=== PATIENT | female | born 1980 | race Caucasian/White ===

== ENCOUNTER 2016-09-29 02:24 | Emergency (ER) | payer MEDICAID, OTHER ==
[2016-09-29 02:58] VITALS: BP 122/77
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
[2016-09-29] MEDS ORDERED: Ketorolac 60 MG/2 ML SDV IM ONE (03:38)
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
== END 2016-09-29 03:57 | disposition home or self-care (01) ==
LOC: JP.ED 02:24
DX: S46.811A Strain of other muscles, fascia and tendons at shoulder and upper arm level, right arm, initial encounter (principal); S43.491A Other sprain of right shoulder joint, initial encounter; J45.909 Unspecified asthma, uncomplicated; K21.9 Gastro-esophageal reflux disease without esophagitis; F17.210 Nicotine dependence, cigarettes, uncomplicated; Z85.41 Personal history of malignant neoplasm of cervix uteri; Z98.890 Other specified postprocedural states; Z79.899 Other long term (current) drug therapy; V89.2XXA Person injured in unspecified motor-vehicle accident, traffic, initial encounter
CPT/HCPCS: 73030; 96372; 99284; J1885

== ENCOUNTER 2017-05-07 19:34 | Emergency (ER) | payer MEDICAID ==
[2017-05-07 20:08] VITALS: BP 148/93
[2017-05-07] MEDS ORDERED: Albuterol 0.083% 2.5 MG/3 ML Neb Soln NEB ONE (20:38)
--- NOTE | 2017-05-07 20:43 | EDM.PDOC ---
ED HPI GENERAL MEDICAL PROBLEM - General Chief Complaint: Respiratory Problem Stated Complaint: COUGH / SOB WITH COLD Time Seen by Provider: 05/07/17 20:25 Source of Information: Reports: Patient, Old Records, RN History Limitations: Reports: No Limitations - History of Present Illness INITIAL COMMENTS - FREE TEXT/NARRATIVE: 36 yo female presents with a persistent cough. Sometimes the cough is productive. No fever. Has a remote hx of asthma, but does not have albuterol. Has no doctor currently. Smokes and has a wood stove at home. Her cough is worse in the morning and then gets better later in the day the longer she is away from the wood smoke in her home. Sx's for over a month. 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 below) (None) body aches Pain Score (Numeric/FACES): 5 - Related Data Allergies Allergy/AdvReac Type Severity Reaction Status Date / Time No Known Allergies Allergy Verified 05/07/17 20:09 Home Meds: Home Meds Fluticasone Propionate [Flovent HFA 110 MCG] 2 puff INH BID #1 puff 05/07/17 [Rx ] Past Medical History - Past Health History Medical/Surgical History: Denies Medical/Surgical History HEENT History: Reports: Impaired Vision Respiratory History: Reports: Asthma Gastrointestinal History: Reports: GERD, Other (See Below) Other Gastrointestinal History: umbilical hernia 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: Psychiatric History: Reports: ADD Oncologic (Cancer) History: Reports: Cervix, Uterine Dermatologic History: Reports: Cellulitis, Eczema, Other (See Below) Other Dermatologic History: recurrent boils - Infectious Disease History Infectious Disease History: Reports: Chicken Pox - Past Surgical History Female Surgical History: Reports: Other (See Below) Other Female Surgeries/Procedures: cervical biopsy Other Oncologic Surgeries/Procedures: uterine; deep bx Social & Family History - Tobacco Use Smoking Status *Q: Current Every Day Smoker Years of Tobacco use: 20 Packs/Tins Daily: 0.2 Used Tobacco, but Quit: No Second Hand Smoke Exposure: No - Caffeine Use Caffeine Use: Reports: Coffee, Energy Drinks - Alcohol Use Days Per Week of Alcohol Use: 0 - Recreational Drug Use Recreational Drug Use: No ED ROS GENERAL - Review of Systems Review Of Systems: See Below Constitutional: Reports: No Symptoms HEENT: Reports: Rhinitis, Other (congestion) Respiratory: Reports: Wheezing, Cough. Denies: Shortness of Breath Cardiovascular: Reports: No Symptoms Skin: Reports: No Symptoms ED EXAM, GENERAL - Physical Exam Exam: See Below Exam Limited By: No Limitations General Appearance: Alert, WD/WN, No Apparent Distress Eye Exam: Bilateral Eye: Normal Inspection, PERRL Ears: Normal External Exam, Normal Canal, Hearing Grossly Normal Ear Exam: Bilateral Ear: Auricle Normal, Canal Normal, TM normal Nose: No Blood Throat/Mouth: Normal Inspection, Normal Lips, Normal Oropharynx, Normal Voice, No Airway Compromise Head: Atraumatic, Normocephalic Neck: Normal Inspection, Supple, Non-Tender Respiratory/Chest: No Respiratory Distress, Lungs Clear, No Accessory Muscle Use , Decreased Breath Sounds Cardiovascular: Regular Rate, Rhythm, No Edema GI/Abdominal: Normal Bowel Sounds, Soft Back Exam: Normal Inspection Extremities: Normal Inspection, Normal Range of Motion, Non-Tender, No Pedal Edema Neurological: Alert, Oriented, CN II-XII Intact, Normal Cognition, Normal Reflexes, No Motor/Sensory Deficits Psychiatric: Normal Affect, Normal Mood Skin Exam: Warm, Dry, Intact, Normal Color, No Rash Lymphatic: No Adenopathy Course - Vital Signs Text/Narrative:: peak flow pre and post albuterol-much better air movement after albuterol Last Recorded V/S: Last Vital Signs Temp 35.7 C 05/07/17 20:05 Pulse 57 L 05/07/17 20:05 Resp 18 05/07/17 20:05 BP 148/93 H 05/07/17 20:05 Pulse Ox 98 05/07/17 20:05 - Orders/Labs/Meds Orders: Active Orders 24 hr Category Date Time Status RT Aerosol Therapy [RC] ASDIRECTED Care 05/07/17 20:38 Active RT Peak Flow Measurement [RC] ASDIRECTED Care 05/07/17 20:45 Active Meds: Medications Discontinued Medications Generic Name Dose Route Start Last Admin Trade Name Freq PRN Reason Stop Dose Admin Albuterol 2.5 mg 05/07/17 20:38 05/07/17 20:42 Proventil Neb Soln NEB 05/07/17 20:39 2.5 mg ONETIME ONE Administration Departure - Departure Time of Disposition: 21:12 Disposition: Home, Self-Care 01 Condition: Fair Clinical Impression: Exacerbation of asthma Qualifiers: Asthma severity: moderate Asthma persistence: persistent Qualified Code(s): J45.41 - Moderate persistent asthma with (acute) exacerbation - Discharge Information Prescriptions: Fluticasone Propionate [Flovent HFA 110 MCG] 2 puff INH BID #1 puff Referrals: PCP,None [Primary Care Provider] - Forms: ED Department Discharge Additional Instructions: Use Albuterol, prednisone, and Flovent as directed on the packaging of your prescription. Avoid smoke anyway your can. Use your peak flow meter to keep track of your asthma. You should be over 500. If you get below 200 you need to come to the ER, otherwise follow up in the clinic sometime in the next 7-10 days , call for an appt. - My Orders Last 24 Hours: My Active Orders 05/07/17 20:38 RT Aerosol Therapy [RC] ASDIRECTED 05/07/17 20:45 RT Peak Flow Measurement [RC] ASDIRECTED - Assessment/Plan Last 24 Hours: My Active Orders 05/07/17 20:38 RT Aerosol Therapy [RC] ASDIRECTED 05/07/17 20:45 RT Peak Flow Measurement [RC] ASDIRECTED
== END 2017-05-07 21:21 | disposition home or self-care (01) ==
LOC: JP.ED 19:34
DX: J45.41 Moderate persistent asthma with (acute) exacerbation (principal); F17.210 Nicotine dependence, cigarettes, uncomplicated
CPT/HCPCS: 94640; 99284-25

== ENCOUNTER 2018-01-15 06:34 | Inpatient (IN) | payer MEDICAID ==
[2018-01-15] MEDS ORDERED: Ondansetron 4 MG/2 ML SDV IV PRN (07:42)
[2018-01-15] MEDS ORDERED: fentaNYL 100 MCG/2 ML SDV IVPUSH PRN (07:42)
[2018-01-15] MEDS ORDERED: Acetaminophen 325 MG Tab PO PRN (07:42)
[2018-01-15] MEDS ORDERED: Sodium Chloride 0.9% 10 ML Syringe FLUSH PRN (07:42)
[2018-01-15] MEDS ORDERED: Lactated Ringers 1,000 ML IV ONE (07:53)
[2018-01-15] MEDS ORDERED: ePHEDrine 50 MG/ML SDV IVPUSH PRN (07:53)
[2018-01-15] MEDS ORDERED: Penicillin G Potassium 5 MILLUNITS in Sodium Chloride 0.9% 50 ML IV ONE (08:30)
--- NOTE | 2018-01-15 08:30 | PCM.LDHP ---
L&D History of Present Illness - General Date of Service: 01/15/18 Admit Problem/Dx: Patient Status Order with Admit Dx/Problem 01/15/18 07:42 Patient Status [ADT] Routine Admission Diagnosis/Problem Admission Diagnosis/Problem Source of Information: Patient History Limitations: Reports: No Limitations - Related Data Allergies/Adverse Reactions: Allergies Allergy/AdvReac Type Severity Reaction Status Date / Time No Known Allergies Allergy Verified 05/07/17 20:09 Home Medications: Home Meds Albuterol [Proventil HFA] 2 puff INH QID PRN 12/07/17 [History] KOP785/Iron Fumarate/FA/DSS [ 19 Tablet] 1 tab PO DAILY 12/07/17 [ History] Past Medical History - Past Health History Medical/Surgical History: Denies Medical/Surgical History HEENT History: Reports: Impaired Vision Respiratory History: Reports: Asthma Gastrointestinal History: Reports: GERD, Other (See Below) Other Gastrointestinal History: umbilical hernia 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: : 7 Para: 3 Other OB/BYN History: GIBRAN-01/14/2018 Psychiatric History: Reports: ADD Oncologic (Cancer) History: Reports: Cervix, Uterine Dermatologic History: Reports: Cellulitis, Eczema, Other (See Below) Other Dermatologic History: recurrent boils - Infectious Disease History Infectious Disease History: Reports: Chicken Pox - Past Surgical History Female Surgical History: Reports: Other (See Below) Other Female Surgeries/Procedures: cervical biopsy Other Oncologic Surgeries/Procedures: uterine; deep bx Social & Family History - Tobacco Use Smoking Status *Q: Current Every Day Smoker Years of Tobacco use: 23 Packs/Tins Daily: 0.5 Used Tobacco, but Quit: No Second Hand Smoke Exposure: Yes - Caffeine Use Caffeine Use: Reports: Coffee, Energy Drinks, Soda, Tea Caffeine Use Comment: 1-2 cups per day - Recreational Drug Use Recreational Drug Use: No H&P Review of Systems - Review of Systems: Review Of Systems: See Below General: Reports: No Symptoms HEENT: Reports: No Symptoms Pulmonary: Reports: No Symptoms Cardiovascular: Reports: No Symptoms Gastrointestinal: Reports: No Symptoms Genitourinary: Reports: No Symptoms Musculoskeletal: Reports: No Symptoms Skin: Reports: No Symptoms Psychiatric: Reports: No Symptoms Neurological: Reports: No Symptoms Hematologic/Lymphatic: Reports: No Symptoms Immunologic: Reports: No Symptoms L&D Exam - Exam Exam: See Below - Vital Signs Vital Signs: Last Vital Signs Temp 36.7 C 01/15/18 06:56 Pulse 91 01/15/18 06:56 Resp 16 01/15/18 06:56 BP 120/67 01/15/18 06:56 Pulse Ox 98 01/15/18 06:56 Weight: 117.934 kg - OB Specific Movement: Active Heart Tones: Present Heart Rate (FHR) Variability: Moderate (6-25 bmp) Presentation: Vertex - Keita Score Keita Score Cervix Position: Midposition Keita Score Consistency: Soft Keita Score Effacement: 51-70% Keita Score Dilation: 3-4 cm Keita Score 's Station: -2 Keita Score Total: 8 - Exam General: Alert, Oriented HEENT: PERRLA, Conjunctiva Clear, EACs Clear, EOMI, Hearing Intact, Mucosa Moist & [place], Nares Patent, Normal Nasal Septum, Posterior Pharynx Clear, TMs Clear Neck: Supple, Trachea Midline Lungs: Clear to Auscultation, Normal Respiratory Effort Cardiovascular: Regular Rate, Regular Rhythm GI/Abdominal Exam: Normal Bowel Sounds, Soft, Non-Tender, No Organomegaly, No Distention, No Abnormal Bruit, No Mass, Pelvis Stable Rectal Exam: Normal Exam, Normal Rectal Tone Genitourinary: Normal external exam, Normal bimanual exam, Normal speculum exam Back Exam: Normal Inspection, Full Range of Motion Extremities: Normal Inspection, Normal Range of Motion, Non-Tender, No Pedal Edema, Normal Capillary Refill Skin: Warm, Dry, Intact Neurological: Cranial Nerves Intact, Reflexes Equal Bilateral DTR: 2+: Patella (L), Patella (R) Psychiatric: Alert, Normal Affect, Normal Mood - Patient Data Lab Results Last 24 hrs: Laboratory Results - last 24 hr 01/15/18 01/15/18 01/15/18 Range/Units 06:55 06:55 06:55 WBC 17.5 H (4.5-11.0) K/uL RBC 4.06 (3.30-5.50) M/uL Hgb 12.0 (12.0-15.0) g/dL Hct 35.7 L (36.0-48.0) % MCV 88 (80-98) fL MCH 30 (27-31) pg MCHC 34 (32-36) % Plt Count 337 (150-400) K/uL Neut % (Auto) 68 H (36-66) % Lymph % (Auto) 18 L (24-44) % [place] % (Auto) 13 H (2-6) % Eos % (Auto) 2 (2-4) % Baso % (Auto) 0 (0-1) % Urine Color Yellow Urine Appearance Cloudy Urine pH 7.0 (4.5-8.0) Ur Specific [place] 1.015 (1.008-1.030) Urine Protein Negative (NEGATIVE) mg/dL Urine Glucose (UA) Normal (NEGATIVE) mg/dL Urine Ketones Negative (NEGATIVE) mg/dL Urine Occult Blood Trace (NEGATIVE) Urine Nitrite Negative (NEGATIVE) Urine Bilirubin Negative (NEGATIVE) Urine Urobilinogen 1 (NORMAL) mg/dL Ur Leukocyte Esterase Large (NEGATIVE) Urine RBC 0-5 (0-5) Urine WBC 10-20 H (0-5) Ur Epithelial Cells Many Amorphous Sediment Moderate Urine Bacteria Many Urine Mucus Moderate Urine Opiates Screen Negative (NEGATIVE) Ur Oxycodone Screen Negative (NEGATIVE) Urine Methadone Screen Negative (NEGATIVE) Ur Propoxyphene Screen Negative (NEGATIVE) Ur Barbiturates Screen Negative (NEGATIVE) Ur Tricyclics Screen Negative (NEGATIVE) Ur Phencyclidine Scrn Negative (NEGATIVE) Ur Amphetamine Screen Negative (NEGATIVE) U Methamphetamines Scrn Negative (NEGATIVE) Urine MDMA Screen Negative (NEGATIVE) U Benzodiazepines Scrn Negative (NEGATIVE) U Cocaine Metab Screen Negative (NEGATIVE) U Marijuana (THC) Screen Negative (NEGATIVE) Result Diagrams: 01/15/18 06:55 - Problem List (1) SNOMED Code(s): 39030890 ICD Code: Z34.90 - ENCNTR FOR SUPRVSN OF NORMAL , UNSP, UNSP TRIMESTER Status: Acute Current Visit: Yes (2) Positive GBS test SNOMED Code(s): 9262653244198, 5602448933662 ICD Code: B95.1 - STREPTOCOCCUS, GROUP B, CAUSING DISEASES CLASSD ELSWHR Status: Acute Current Visit: Yes (3) Encounter for induction of labor SNOMED Code(s): 705193148 ICD Code: Z34.90 - ENCNTR FOR SUPRVSN OF NORMAL , UNSP, UNSP TRIMESTER Status: Acute Current Visit: Yes (4) Advanced maternal age (AMA) in SNOMED Code(s): 708250125 ICD Code: [id number] - Status: Acute Current Visit: Yes Problem List Initiated/Reviewed/Updated: Yes Orders Last 24hrs: Active Orders 24 hr Category Date Time Status Patient Status [ADT] Routine ADT 01/15/18 07:42 Active Antiembolic Devices [RC] .Routine Care 01/15/18 07:49 Active Communication Order [RC] ASDIRECTED Care 01/15/18 07:42 Active Heart Tones [RC] PER UNIT ROUTINE Care 01/15/18 07:42 Active Non Stress Test [RC] Click to Edit Care 01/15/18 07:42 Active Insert Urinary Catheter [OM.PC] ASDIRECTED Care 01/15/18 08:00 Ordered Local Anesthetic Infusion Pump [RC] ASDIRECTED Care 01/15/18 07:53 Active May Shower [RC] ASDIRECTED Care 01/15/18 07:42 Active Notify Provider Vital Signs [RC] PRN Care 01/15/18 07:42 Active Notify Provider [RC] PRN Care 01/15/18 07:42 Active PCEA Epidural [RC] ASDIRECTED Care 01/15/18 07:53 Active PCEA Epidural [RC] ASDIRECTED Care 01/15/18 07:53 Active Up ad Nataliia [RC] ASDIRECTED Care 01/15/18 07:42 Active Up to Chair [RC] QID Care 01/15/18 07:42 Active Urinary Catheter Assessment [RC] ASDIRECTED Care 01/15/18 07:53 Active VTE/DVT Education [RC] Click to Edit Care 01/15/18 07:49 Active Verify Patient Consent Obtain [RC] ASDIRECTED Care 01/15/18 07:53 Active Vital Signs [RC] PER UNIT ROUTINE Care 01/15/18 07:42 Active Regular Diet [DIET] Diet 01/15/18 Breakfast Active OB Follow Up 1st Gest [US] Routine Exams 01/15/18 08:00 Ordered Acetaminophen [Tylenol] Med 01/15/18 07:42 Active 650 mg PO Q4H PRN Lactated Ringers [Ringers, Lactated] 1,000 ml Med 01/15/18 07:53 Active IV ONETIME Ondansetron [Zofran] Med 01/15/18 07:42 Active 4 mg IV Q4H PRN Oxytocin/Normal Saline [Pitocin in NS 20 Units/1,000 ML Med 01/15/18 08:00 Active ] 20 unit in 1,000 ml IV TITRATE Penicillin G Potassium [Pfizerpen] 2.5 millunits Med 01/15/18 12:30 Active Sodium Chloride 0.9% [Normal Saline] 50 ml IV Q4H Penicillin G Potassium [Pfizerpen] 5 millunits Med 01/15/18 08:30 Active Sodium Chloride 0.9% [Normal Saline] 50 ml IV ONETIME Sodium Chloride 0.9% [Saline Flush] Med 01/15/18 07:42 Active 10 ml FLUSH ASDIRECTED PRN ePHEDrine [ePHEDrine Sulfate] Med 01/15/18 07:53 Active 5 mg IVPUSH ONETIME PRN fentaNYL [Sublimaze] Med 01/15/18 07:42 Active 100 mcg IVPUSH Q1H PRN DVT/VTE Prophylaxis Reflex [OM.PC] Routine Oth 01/15/18 07:42 Ordered Epidural Catheter Management [OM.PC] Urgent Oth 01/15/18 07:53 Ordered Saline Lock Insert [OM.PC] Routine Oth 01/15/18 07:42 Ordered Resuscitation Status Routine Resus Stat 01/15/18 07:42 Ordered Medication Orders Acetaminophen (Tylenol) 650 mg PO Q4H PRN PRN Reason: Pain (Mild 1-3) and fever Ephedrine Sulfate (Ephedrine Sulfate) 5 mg IVPUSH ONETIME PRN PRN Reason: * Fentanyl (Sublimaze) 100 mcg IVPUSH Q1H PRN PRN Reason: Pain (moderate 4-6) Penicillin G Potassium 5 (millunits/ Sodium Chloride) 50 mls @ 100 mls/hr IV ONETIME ONE Stop: 01/15/18 08:59 Last Admin: 01/15/18 08:11 Dose: 100 mls/hr Penicillin G Potassium 2.5 (millunits/ Sodium Chloride) 50 mls @ 100 mls/hr IV Q4H MONO Oxytocin/Sodium Chloride (Pitocin In Ns 20 Units/1,000 Ml) 20 unit in 1,000 mls @ 6 mls/hr IV TITRATE MONO; Protocol Lactated Ringer's (Ringers, Lactated) 1,000 mls @ 999 mls/hr IV ONETIME ONE Stop: 01/15/18 08:53 Ondansetron HCl (Zofran) 4 mg IV Q4H PRN PRN Reason: Nausea/Vomiting Sodium Chloride (Saline Flush) 10 ml FLUSH ASDIRECTED PRN PRN Reason: Keep Vein Open Assessment/Plan Comment:: 01/15/2018 37 yo here at 40 1/7 gestational weeks for induction of labor related to postdates, unstable lie of fetus. SVE-3-4/60/-2 bulgy BOW FHTs category one No contractions Plan- Monitor labor Monitor FHTs Start pitocin per protocol May eat regular breakfast GBS positive-PCN GK per protocol May have epidural for pain Plan and anticipate a vaginal delivery
[2018-01-15] MEDS ORDERED: Calcium Carbonate 500 MG Tab.Chew PO PRN (10:04)
--- NOTE | 2018-01-15 11:47 | US ---
OB Ltd 1 or More Fetus CLINICAL HISTORY: position prior to induction FINDINGS: Limited transabdominal scans of the abdomen show single viable intrauterine gestation in ce phalic position IMPRESSION: Limited transabdominal ultrasound shows cephalic presentation
[2018-01-15] MEDS ORDERED: Penicillin G Potassium 2.5 MILLUNITS in Sodium Chloride 0.9% 50 ML IV SCH (12:30)
[2018-01-15] MEDS ORDERED: Lidocaine 1% 50 ML MDV ONE (13:29)
[2018-01-15] MEDS ORDERED: Witch Hazel Medicated Pads 100/Jar TOP PRN (13:39)
[2018-01-15] MEDS ORDERED: Hydrocortisone 2.5% Crm 30 GM Tube TOP PRN (13:39)
[2018-01-15] MEDS ORDERED: Lanolin 100% Cream 40 GM Tube TOP PRN (13:39)
[2018-01-15] MEDS ORDERED: Acetaminophen 325 MG Tab, 50 Tab Bulk Bottle PO PRN (13:44)
[2018-01-15] MEDS ORDERED: Ibuprofen 200 MG Tab, 24 Tab Bulk Bottle PO PRN (13:44)
[2018-01-15] MEDS ORDERED: ePHEDrine 50 MG/ML SDV IV PRN (13:51)
[2018-01-15] MEDS ORDERED: Ropivacaine 100 ML EPIDUR SCH (13:51)
[2018-01-15] MEDS ORDERED: Naloxone 0.4 MG/ML SDV IVPUSH PRN (13:51)
--- NOTE | 2018-01-15 14:04 | ANES ---
DATE OF SERVICE: 01/15/2018 INDICATION: Ms. Izquierdo is a 37-year-old female in active labor, and I was asked by Mariah Aguilar to come and evaluate her for an epidural. The risks and benefits were explained to the patient, and she wished to proceed with the labor epidural. TECHNIQUE: She was placed in a sitting position. Her back was prepped x3 with Betadine. 1% lidocaine skin local was used. The epidural was placed at L3-4 using a 17-gauge Tuohy needle in [id number] technique. The epidural had very good feel throughout, and the epidural space was easily identified. There was negative CSF, negative blood, and negative paresthesias noted. Therefore, a catheter was threaded to 13 cm at the skin. The catheter had negative CSF, negative blood, and negative paresthesias as well. A 3 mL test dose of 1.5% lidocaine with epinephrine was given, and this test dose was negative. The patient was then placed in a supine position after her epidural was secured with Tegaderm and tape. 12 mL of 0.2% ropivacaine bolus was given. This bolus had somewhat good relief; although, I think she was moving quite fast and hard to catch up with this. I did start a 0.2% ropivacaine drip at 12 mL/hour. She tolerated the procedure very nicely. Her vital signs remained stable throughout the procedure, and the nurse was with me for the entire procedure. There were no anesthesia complications noted. We will continue to monitor her throughout her labor and delivery. Thien Mejias CRNA /[id number]
[2018-01-15] MEDS: Benzocaine 20% Top Spray 56 GM Bottle TOP PRN (16:28)
--- NOTE | 2018-01-15 17:41 | PCM.DEL ---
L & D Note - General Info Date of Service: 01/15/18 Mother's Due Date: 01/14/18 - Delivery Note Labor: Spontaneous Cervical Ripening Method: Oxytocin Delivery Outcome: Livebirth Delivery Method: Spontaneous Vaginal Delivery-Single Infant Delivery Mode: Spontaneous Presentation: Right Occiput Posterior (ROP) Nuchal Cord: None Anesthesia Type: None Episiotomy Type: None Laceration: Labial Placenta: Intact, Spontaneous Cord: 3 Vessels Estimated Blood Loss: 300 Resuscitation Needed: No Bieber: Bulb Syringe, Stimulated, Warmed, [place] Used Score 1 min: 9 Score 5 min: 10 Second Stage Interventions: Reports: Pushing Effectively Delivery Comments (Free Text/Narrative):: 01/15/2018 37 yo at 40 1/7 gestational weeks delivered a viable female at 1315 on 01/15/2018 in ROP over an intact perineum. APGARS-9/10, weight-8lbs 2.7oz, Length-19.9 inches, placed on prewarmed blanket on mothers abdomen, cord double clamped after delayed cord clamping and cut by father of infant. then stimulated, dried, and warmed and began to cry vigorously and pink in color. Placenta spontaneous and intact but meconium stained. 3 vessel cord, EBL-300ml, laceration noted of the right labia-patient refused repair. No lacerations noted of cervix, vagina, rectum or perineum. now skin to skin and both mother and baby stable at this time in L&D room. - General Info Date of Service: 01/15/18 Functional Status: Reports: Pain Controlled - Review of Systems General: Reports: No Symptoms HEENT: Reports: No Symptoms Pulmonary: Reports: No Symptoms Cardiovascular: Reports: No Symptoms Gastrointestinal: Reports: No Symptoms Genitourinary: Reports: No Symptoms Musculoskeletal: Reports: No Symptoms Skin: Reports: No Symptoms Neurological: Reports: No Symptoms Psychiatric: Reports: No Symptoms - Patient Data Vitals - Most Recent: Last Vital Signs Temp 37.2 C 01/15/18 14:18 Pulse 52 L 01/15/18 15:40 Resp 18 01/15/18 15:40 BP 104/61 01/15/18 15:40 Pulse Ox 94 L 01/15/18 15:03 Weight - Most Recent: 117.934 kg I&O - Last 24 Hours: Intake & Output 01/15/18 01/15/18 01/15/18 06:59 14:59 22:59 Intake Total 50 Balance 50 Lab Results Last 24 Hours: Laboratory Results - last 24 hr 01/15/18 01/15/18 01/15/18 Range/Units 06:55 06:55 06:55 WBC 17.5 H (4.5-11.0) K/uL RBC 4.06 (3.30-5.50) M/uL Hgb 12.0 (12.0-15.0) g/dL Hct 35.7 L (36.0-48.0) % MCV 88 (80-98) fL MCH 30 (27-31) pg MCHC 34 (32-36) % Plt Count 337 (150-400) K/uL Neut % (Auto) 68 H (36-66) % Lymph % (Auto) 18 L (24-44) % [place] % (Auto) 13 H (2-6) % Eos % (Auto) 2 (2-4) % Baso % (Auto) 0 (0-1) % Urine Color Yellow Urine Appearance Cloudy Urine pH 7.0 (4.5-8.0) Ur Specific [place] 1.015 (1.008-1.030) Urine Protein Negative (NEGATIVE) mg/dL Urine Glucose (UA) Normal (NEGATIVE) mg/dL Urine Ketones Negative (NEGATIVE) mg/dL Urine Occult Blood Trace (NEGATIVE) Urine Nitrite Negative (NEGATIVE) Urine Bilirubin Negative (NEGATIVE) Urine Urobilinogen 1 (NORMAL) mg/dL Ur Leukocyte Esterase Large (NEGATIVE) Urine RBC 0-5 (0-5) Urine WBC 10-20 H (0-5) Ur Epithelial Cells Many Amorphous Sediment Moderate Urine Bacteria Many Urine Mucus Moderate Urine Opiates Screen Negative (NEGATIVE) Ur Oxycodone Screen Negative (NEGATIVE) Urine Methadone Screen Negative (NEGATIVE) Ur Propoxyphene Screen Negative (NEGATIVE) Ur Barbiturates Screen Negative (NEGATIVE) Ur Tricyclics Screen Negative (NEGATIVE) Ur Phencyclidine Scrn Negative (NEGATIVE) Ur Amphetamine Screen Negative (NEGATIVE) U Methamphetamines Scrn Negative (NEGATIVE) Urine MDMA Screen Negative (NEGATIVE) U Benzodiazepines Scrn Negative (NEGATIVE) U Cocaine Metab Screen Negative (NEGATIVE) U Marijuana (THC) Screen Negative (NEGATIVE) Med Orders - Current: Current Medications Acetaminophen (Tylenol) 650 mg PO Q4H PRN PRN Reason: Pain (Mild 1-3) and fever Acetaminophen (Tylenol Bulk Bottle) 325 - 650 mg PO Q4H PRN PRN Reason: Pain Benzocaine (Yons-J-Guolgqc 20% [place]) 0 gm TOP Q4H PRN PRN Reason: Perineal Comfort Measure Last Admin: 01/15/18 16:28 Dose: 1 spray Calcium Carbonate/Glycine (Tums) 1,000 mg PO Q2H PRN PRN Reason: Indigestion Last Admin: 01/15/18 10:19 Dose: 1,000 mg Docusate Sodium (Colace) 100 mg PO BID PRN PRN Reason: Constipation Emollient Ointment (Lansinoh Hpa) 0 gm TOP ASDIRECTED PRN PRN Reason: Sore Nipples Ephedrine Sulfate (Ephedrine Sulfate) 5 mg IVPUSH ONETIME PRN PRN Reason: * Ephedrine Sulfate (Ephedrine Sulfate) 5 - 10 mg IV ASDIRECTED PRN PRN Reason: Systolic BP less than 100 Fentanyl (Sublimaze) 100 mcg IVPUSH Q1H PRN PRN Reason: Pain (moderate 4-6) Last Admin: 01/15/18 12:02 Dose: 100 mcg Hydrocortisone (Proctozone-Hc 2.5% Crm) 0 gm TOP ASDIRECTED PRN PRN Reason: Itching Oxytocin/Sodium Chloride (Pitocin In Ns 20 Units/1,000 Ml) 20 unit in 1,000 mls @ 6 mls/hr IV TITRATE MONO; Protocol Last Titration: 01/15/18 14:32 Dose: Infused Ropivacaine (Naropin 0.2%) 100 mls @ 0 mls/hr EPIDUR ASDIRECTED MONO; Protocol Ibuprofen (Motrin Bulk Bottle) 600 mg PO Q6H PRN PRN Reason: Pain Naloxone HCl (Narcan) 0.1 mg IVPUSH Q5M PRN PRN Reason: IF RESP RATE LESS THAN 6 Ondansetron HCl (Zofran) 4 mg IV Q4H PRN PRN Reason: Nausea/Vomiting Pneumococcal Polyvalent Vaccine (Pneumovax 23) 0.5 ml IM .ONCE ONE Stop: 01/16/18 09:01 Sodium Chloride (Saline Flush) 10 ml FLUSH ASDIRECTED PRN PRN Reason: Keep Vein Open Witch Valery (Tucks) 1 pad TOP ASDIRECTED PRN PRN Reason: Hemorrhoids Last Admin: 01/15/18 16:29 Dose: 1 pad Discontinued Medications Penicillin G Potassium 5 (millunits/ Sodium Chloride) 50 mls @ 100 mls/hr IV ONETIME ONE Stop: 01/15/18 08:59 Last Admin: 01/15/18 08:11 Dose: 100 mls/hr Penicillin G Potassium 2.5 (millunits/ Sodium Chloride) 50 mls @ 100 mls/hr IV Q4H MONO Last Admin: 01/15/18 12:07 Dose: 100 mls/hr Lactated Ringer's (Ringers, Lactated) 1,000 mls @ 999 mls/hr IV ONETIME ONE Stop: 01/15/18 08:53 Last Admin: 01/15/18 11:33 Dose: 999 mls/hr Lidocaine HCl (Xylocaine 1%) Confirm Administered Dose 100 ml .ROUTE .STK-MED ONE Stop: 01/15/18 13:30 - Exam General: Alert, Oriented HEENT: Pupils Equal, Pupils Reactive, EOMI, Mucous Membr. Moist/[place] Neck: Supple Lungs: Clear to Auscultation, Normal Respiratory Effort Cardiovascular: Regular Rate, Regular Rhythm GI/Abdominal Exam: Normal Bowel Sounds, Soft, Non-Tender, No Organomegaly, No Distention, No Abnormal Bruit, No Mass, Pelvis Stable (Female) Exam: Normal External Exam, Normal Speculum Exam, Normal Bimanual Exam, Enlarged Uterus, Vaginal Bleeding Back Exam: Normal Inspection, Full Range of Motion Extremities: Normal Inspection, Normal Range of Motion, Non-Tender, No Pedal Edema, Normal Capillary Refill Skin: Warm, Dry, Intact Neurological: No New Focal Deficit Psy/Mental Status: Alert, Normal Affect, Normal Mood - Problem List & Annotations (1) SNOMED Code(s): 01348030 Code(s): Z34.90 - ENCNTR FOR SUPRVSN OF NORMAL , UNSP, UNSP TRIMESTER Status: Acute Current Visit: Yes Qualifiers: Weeks of gestation: 40 weeks Qualified Code(s): Z3A.40 - 40 weeks gestation of (2) Positive GBS test SNOMED Code(s): 2206240601047, 4978237571790 Code(s): B95.1 - STREPTOCOCCUS, GROUP B, CAUSING DISEASES CLASSD ELSWHR Status: Acute Current Visit: Yes (3) Encounter for induction of labor SNOMED Code(s): 209648604 Code(s): Z34.90 - ENCNTR FOR SUPRVSN OF NORMAL , UNSP, UNSP TRIMESTER Status: Acute Current Visit: Yes (4) Advanced maternal age (AMA) in SNOMED Code(s): 272030511 Code(s): DPE4701 - Status: Acute Current Visit: Yes (5) Normal vaginal delivery SNOMED Code(s): 47179064 Code(s): O80 - ENCOUNTER FOR FULL-TERM UNCOMPLICATED DELIVERY Status: Acute Current Visit: Yes (6) Elevated white blood cell count SNOMED Code(s): 447293853, 554501937 Code(s): D72.829 - ELEVATED WHITE BLOOD CELL COUNT, UNSPECIFIED Status: Acute Current Visit: Yes (7) Meconium staining SNOMED Code(s): 492753104, 653161393 Code(s): P96.83 - MECONIUM STAINING Status: Acute Current Visit: Yes - Problem List Review Problem List Initiated/Reviewed/Updated: Yes - My Orders Last 24 Hours: My Active Orders 01/15/18 07:42 Patient Status [ADT] Routine Communication Order [RC] ASDIRECTED May Shower [RC] ASDIRECTED Notify Provider Vital Signs [RC] PRN Up ad Nataliia [RC] ASDIRECTED Up to Chair [RC] QID Acetaminophen [Tylenol] 650 mg PO Q4H PRN Ondansetron [Zofran] 4 mg IV Q4H PRN Sodium Chloride 0.9% [Saline Flush] 10 ml FLUSH ASDIRECTED PRN fentaNYL [Sublimaze] 100 mcg IVPUSH Q1H PRN DVT/VTE Prophylaxis Reflex [OM.PC] Routine Saline Lock Insert [OM.PC] Routine Resuscitation Status Routine 01/15/18 07:49 Antiembolic Devices [RC] .Routine 01/15/18 07:53 ePHEDrine [ePHEDrine Sulfate] 5 mg IVPUSH ONETIME PRN Epidural Catheter Management [OM.PC] Urgent 01/15/18 08:00 Insert Urinary Catheter [OM.PC] ASDIRECTED Oxytocin/Normal Saline [Pitocin in NS 20 Units/1,000 ML] 20 unit in 1,000 ml IV TITRATE 01/15/18 10:04 Calcium Carbonate [Tums] 1,000 mg PO Q2H PRN 01/15/18 13:39 Benzocaine [Tsdt-G-Gwsjizm 20% [place]] See Dose Instructions TOP Q4H PRN Docusate Sodium [Colace] 100 mg PO BID PRN Hydrocortisone [Proctozone-HC 2.5% Crm] 0 gm TOP ASDIRECTED PRN Lanolin [Lansinoh HPA] 0 gm TOP ASDIRECTED PRN Witch Valery [Tucks] 1 pad TOP ASDIRECTED PRN Assess Lochia [WOMSER] Per Unit Routine Assess Uterine Involution [WOMSER] Per Unit Routine 01/15/18 13:40 Patient Status [ADT] Routine Vital Signs [RC] PFP 01/15/18 13:42 Perineal Care [OM.PC] Per Unit Routine Sitz Bath [OM.PC] Per Unit Routine 01/15/18 13:44 Acetaminophen [Tylenol Bulk Bottle] 325 - 650 mg PO Q4H PRN Ibuprofen [Motrin Bulk Bottle] 600 mg PO Q6H PRN 01/15/18 Breakfast Regular Diet [DIET] 01/16/18 09:00 Pneumococcal Polyvalent-23 Vac [Pneumovax 23] 0.5 ml IM .ONCE ONE - Assessment Assessment:: 01/15/2018 37 yo G7 now P4 in at 40 1/7 gestational weeks delivered viable female without complications at 1315 on 01/15/2018 Labs-GBS positive, A positive, Hep B neg, Hep C neg, HIV neg, RPR nonreactive, Rubella Immune - Plan Plan:: 01/15/2018 37 yo here at 40 1/7 gestational weeks for induction of labor related to postdates, unstable lie of fetus. SVE-3-4/60/-2 bulgy BOW FHTs category one No contractions Plan- Monitor labor Monitor FHTs Start pitocin per protocol May eat regular breakfast GBS positive-PCN GK per protocol May have epidural for pain Plan and anticipate a vaginal delivery 01/15/2018 Routine Cares Support and encourage 48 hr stay for GBS positive CBC in am
[2018-01-15] MEDS: Docusate Sodium 100 MG Cap PO PRN (21:26)
--- NOTE | 2018-01-16 08:08 | PCM.PNPP ---
- General Info Date of Service: 01/16/18 ( day one) Functional Status: Reports: Pain Controlled - Review of Systems General: Reports: No Symptoms HEENT: Reports: No Symptoms Pulmonary: Reports: No Symptoms Cardiovascular: Reports: No Symptoms Gastrointestinal: Reports: No Symptoms Genitourinary: Reports: No Symptoms Musculoskeletal: Reports: No Symptoms Skin: Reports: No Symptoms Neurological: Reports: No Symptoms Psychiatric: Reports: No Symptoms - General Info Date of Service: 01/16/18 - Patient Data Vital Signs - Most Recent: Last Vital Signs Temp 36.1 C 01/16/18 02:58 Pulse 101 H 01/16/18 02:58 Resp 18 01/16/18 02:58 BP 133/69 01/16/18 02:58 Pulse Ox 98 01/16/18 02:58 Weight - Most Recent: 117.934 kg I&O - Last 24 Hours: Intake & Output 01/15/18 01/16/18 01/16/18 22:59 06:59 14:59 Intake Total 360 1800 Balance 360 1800 Med Orders - Current: Current Medications Acetaminophen (Tylenol) 650 mg PO Q4H PRN PRN Reason: Pain (Mild 1-3) and fever Acetaminophen (Tylenol Bulk Bottle) 325 - 650 mg PO Q4H PRN PRN Reason: Pain Last Admin: 01/15/18 18:20 Dose: 650 mg Benzocaine (Ctyy-H-Icohboq 20% Interior) 0 gm TOP Q4H PRN PRN Reason: Perineal Comfort Measure Last Admin: 01/15/18 16:28 Dose: 1 spray Calcium Carbonate/Glycine (Tums) 1,000 mg PO Q2H PRN PRN Reason: Indigestion Last Admin: 01/15/18 10:19 Dose: 1,000 mg Docusate Sodium (Colace) 100 mg PO BID PRN PRN Reason: Constipation Last Admin: 01/15/18 21:26 Dose: 100 mg Emollient Ointment (Lansinoh Hpa) 0 gm TOP ASDIRECTED PRN PRN Reason: Sore Nipples Hydrocortisone (Proctozone-Hc 2.5% Crm) 0 gm TOP ASDIRECTED PRN PRN Reason: Itching Ibuprofen (Motrin Bulk Bottle) 600 mg PO Q6H PRN PRN Reason: Pain Last Admin: 09/20/18 18:20 Dose: 600 mg Ondansetron HCl (Zofran) 4 mg IV Q4H PRN PRN Reason: Nausea/Vomiting Pneumococcal Polyvalent Vaccine (Pneumovax 23) 0.5 ml IM .ONCE ONE Stop: 01/16/18 09:01 Sodium Chloride (Saline Flush) 10 ml FLUSH ASDIRECTED PRN PRN Reason: Keep Vein Open Witch Valery (Tucks) 1 pad TOP ASDIRECTED PRN PRN Reason: Hemorrhoids Last Admin: 01/15/18 16:29 Dose: 1 pad Discontinued Medications Ephedrine Sulfate (Ephedrine Sulfate) 5 mg IVPUSH ONETIME PRN PRN Reason: * Ephedrine Sulfate (Ephedrine Sulfate) 5 - 10 mg IV ASDIRECTED PRN PRN Reason: Systolic BP less than 100 Fentanyl (Sublimaze) 100 mcg IVPUSH Q1H PRN PRN Reason: Pain (moderate 4-6) Last Admin: 01/15/18 12:02 Dose: 100 mcg Penicillin G Potassium 5 (millunits/ Sodium Chloride) 50 mls @ 100 mls/hr IV ONETIME ONE Stop: 01/15/18 08:59 Last Admin: 01/15/18 08:11 Dose: 100 mls/hr Penicillin G Potassium 2.5 (millunits/ Sodium Chloride) 50 mls @ 100 mls/hr IV Q4H MONO Last Admin: 01/15/18 12:07 Dose: 100 mls/hr Oxytocin/Sodium Chloride (Pitocin In Ns 20 Units/1,000 Ml) 20 unit in 1,000 mls @ 6 mls/hr IV TITRATE MONO; Protocol Last Titration: 01/15/18 14:32 Dose: Infused Lactated Ringer's (Ringers, Lactated) 1,000 mls @ 999 mls/hr IV ONETIME ONE Stop: 01/15/18 08:53 Last Admin: 01/15/18 11:33 Dose: 999 mls/hr Ropivacaine (Naropin 0.2%) 100 mls @ 0 mls/hr EPIDUR ASDIRECTED MONO; Protocol Lidocaine HCl (Xylocaine 1%) Confirm Administered Dose 100 ml .ROUTE .STK-MED ONE Stop: 01/15/18 13:30 Last Admin: 01/15/18 18:21 Dose: Not Given Naloxone HCl (Narcan) 0.1 mg IVPUSH Q5M PRN PRN Reason: IF RESP RATE LESS THAN 6 - Infant Interaction Disposition, : [place] in Room with Family Interaction: Holding Feeding: Breastfed ; Nursed Well, Continues to Breastfeed, Encouraged to Breastfeed Support Person: Significant Other - Recovery Exam Fundal Tone: Firm Fundal Level: 2 Fingerbreadths Below Umbilicus Fundal Placement: Left Lochia Amount: Small, Moderate Lochia Color: Rubra/Red Perineum Description: Redness Episiotomy/Laceration: None Urinary Elimination: Voided - Exam General: Alert, Oriented HEENT: Pupils Equal Neck: Supple Lungs: Clear to Auscultation, Normal Respiratory Effort Cardiovascular: Regular Rate, Regular Rhythm GI/Abdominal Exam: Normal Bowel Sounds, Soft, Non-Tender, No Organomegaly, No Distention, No Abnormal Bruit, No Mass, Pelvis Stable, Hernia (large patient reduces it herself ) Extremities: Normal Inspection, Normal Range of Motion, Non-Tender, No Pedal Edema, Normal Capillary Refill Skin: Warm, Dry, Intact Neurological: No New Focal Deficit Psy/Mental Status: Alert, Normal Affect, Normal Mood - Problem List & Annotations (1) SNOMED Code(s): 66189727 Code(s): Z34.90 - ENCNTR FOR SUPRVSN OF NORMAL , UNSP, UNSP TRIMESTER Status: Acute Current Visit: Yes Qualifiers: Weeks of gestation: 40 weeks Qualified Code(s): Z3A.40 - 40 weeks gestation of (2) Positive GBS test SNOMED Code(s): 9439225029513, 5321980006766 Code(s): B95.1 - STREPTOCOCCUS, GROUP B, [facility] Status: Acute Current Visit: Yes (3) Encounter for induction of labor SNOMED Code(s): 236508308 Code(s): Z34.90 - ENCNTR FOR SUPRVSN OF NORMAL , UNSP, UNSP TRIMESTER Status: Acute Current Visit: Yes (4) Advanced maternal age (AMA) in SNOMED Code(s): 021253339 Code(s): QYL9655 - Status: Acute Current Visit: Yes (5) Normal vaginal delivery SNOMED Code(s): 25717855 Code(s): O80 - ENCOUNTER FOR FULL-TERM UNCOMPLICATED DELIVERY Status: Acute Current Visit: Yes (6) Elevated white blood cell count SNOMED Code(s): 552245232, 355790323 Code(s): D72.829 - ELEVATED WHITE BLOOD CELL COUNT, UNSPECIFIED Status: Acute Current Visit: Yes (7) Meconium staining SNOMED Code(s): 605643044, 411969236 Code(s): P96.83 - MECONIUM STAINING Status: Acute Current Visit: Yes (8) Umbilical hernia SNOMED Code(s): 596453607 Code(s): K42.9 - UMBILICAL HERNIA WITHOUT OBSTRUCTION OR GANGRENE Status: Acute Current Visit: Yes Qualifiers: Obstruction and gangrene presence: without obstruction or gangrene Qualified Code(s): K42.9 - Umbilical hernia without obstruction or gangrene - Problem List Review Problem List Initiated/Reviewed/Updated: Yes - My Orders Last 24 Hours: My Active Orders 01/15/18 07:42 Patient Status [ADT] Routine May Shower [RC] ASDIRECTED Notify Provider Vital Signs [RC] PRN Up ad Nataliia [RC] ASDIRECTED Up to Chair [RC] QID Acetaminophen [Tylenol] 650 mg PO Q4H PRN Ondansetron [Zofran] 4 mg IV Q4H PRN Sodium Chloride 0.9% [Saline Flush] 10 ml FLUSH ASDIRECTED PRN DVT/VTE Prophylaxis Reflex [OM.PC] Routine Saline Lock Insert [OM.PC] Routine Resuscitation Status Routine 01/15/18 07:49 Antiembolic Devices [RC] .Routine 01/15/18 07:53 Epidural Catheter Management [OM.PC] Urgent 01/15/18 08:00 Insert Urinary Catheter [OM.PC] ASDIRECTED 01/15/18 10:04 Calcium Carbonate [Tums] 1,000 mg PO Q2H PRN 01/15/18 13:39 Benzocaine [Hfkx-A-Npcvqeg 20% Interior] See Dose Instructions TOP Q4H PRN Docusate Sodium [Colace] 100 mg PO BID PRN Hydrocortisone [Proctozone-HC 2.5% Crm] 0 gm TOP ASDIRECTED PRN Lanolin [Lansinoh HPA] 0 gm TOP ASDIRECTED PRN Witch Valery [Tucks] 1 pad TOP ASDIRECTED PRN Assess Lochia [WOMSER] Per Unit Routine Assess Uterine Involution [WOMSER] Per Unit Routine 01/15/18 13:40 Patient Status [ADT] Routine Vital Signs [RC] Q4H 01/15/18 13:42 Perineal Care [OM.PC] Per Unit Routine Sitz Bath [OM.PC] Per Unit Routine 01/15/18 13:44 Acetaminophen [Tylenol Bulk Bottle] 325 - 650 mg PO Q4H PRN Ibuprofen [Motrin Bulk Bottle] 600 mg PO Q6H PRN 01/15/18 21:41 K Pad [Heat Therapy] [OM.PC] Routine 01/15/18 Breakfast Regular Diet [DIET] 01/16/18 09:00 Pneumococcal Polyvalent-23 Vac [Pneumovax 23] 0.5 ml IM .ONCE ONE - Assessment Assessment:: 01/15/2018 37 yo G7 now P4 in at 40 1/7 gestational weeks delivered viable female without complications at 1315 on 01/15/2018 Labs-GBS positive, A positive, Hep B neg, Hep C neg, HIV neg, RPR nonreactive, Rubella Immune --------- 01/16/2018 day one Fundus firm and bleeding decreased Large umbilical hernia Voiding and passing gas GBS positive well Social problem - Plan Plan:: 01/15/2018 37 yo here at 40 1/7 gestational weeks for induction of labor related to postdates, unstable lie of fetus. SVE-3-/-2 bulgy BOW FHTs category one No contractions Plan- Monitor labor Monitor FHTs Start pitocin per protocol May eat regular breakfast GBS positive-PCN GK per protocol May have epidural for pain Plan and anticipate a vaginal delivery 01/15/2018 Routine Cares Support and encourage 48 hr stay for GBS positive CBC in am 01/16/2018 Continue routine cares Support and encourage 48 hr stay for GBS positive Surgery consult for hernia and tubal
[2018-01-16] MEDS ORDERED: Pneumococcal Polyvalent-23 Vaccine 0.5 ML SDV IM ONE (09:00)
[2018-01-16] MEDS: Docusate Sodium 100 MG Cap PO PRN (19:31)
--- NOTE | 2018-01-17 08:02 | PCM.PNPP ---
- General Info Date of Service: 01/17/18 - Review of Systems General: Reports: No Symptoms HEENT: Reports: No Symptoms Pulmonary: Reports: No Symptoms Cardiovascular: Reports: No Symptoms Gastrointestinal: Reports: No Symptoms Genitourinary: Reports: No Symptoms Musculoskeletal: Reports: No Symptoms Skin: Reports: No Symptoms Neurological: Reports: No Symptoms Psychiatric: Reports: No Symptoms - General Info Date of Service: 01/17/18 - Patient Data Vital Signs - Most Recent: Last Vital Signs Temp 35.4 C 01/17/18 03:00 Pulse 70 01/17/18 03:00 Resp 16 01/17/18 03:00 BP 122/77 01/17/18 03:00 Pulse Ox 98 01/17/18 03:00 Weight - Most Recent: 117.934 kg Lab Results - Last 24 Hours: Laboratory Results - last 24 hr 01/16/18 Range/Units 08:21 WBC 13.6 H (4.5-11.0) K/uL RBC 3.62 (3.30-5.50) M/uL Hgb 10.6 L (12.0-15.0) g/dL Hct 32.5 L (36.0-48.0) % MCV 90 (80-98) fL MCH 29 (27-31) pg MCHC 33 (32-36) % Plt Count 270 (150-400) K/uL Neut % (Auto) 63 (36-66) % Lymph % (Auto) 25 (24-44) % [place] % (Auto) 10 H (2-6) % Eos % (Auto) 2 (2-4) % Baso % (Auto) 0 (0-1) % Med Orders - Current: Current Medications Acetaminophen (Tylenol) 650 mg PO Q4H PRN PRN Reason: Pain (Mild 1-3) and fever Acetaminophen (Tylenol Bulk Bottle) 325 - 650 mg PO Q4H PRN PRN Reason: Pain Last Admin: 01/15/18 18:20 Dose: 650 mg Benzocaine ([id number] 20% Trezevant) 0 gm TOP Q4H PRN PRN Reason: Perineal Comfort Measure Last Admin: 01/15/18 16:28 Dose: 1 spray Calcium Carbonate/Glycine (Tums) 1,000 mg PO Q2H PRN PRN Reason: Indigestion Last Admin: 01/15/18 10:19 Dose: 1,000 mg Docusate Sodium (Colace) 100 mg PO BID PRN PRN Reason: Constipation Last Admin: 01/16/18 19:31 Dose: 100 mg Emollient Ointment (Lansinoh Hpa) 0 gm TOP ASDIRECTED PRN PRN Reason: Sore Nipples Hydrocortisone (Proctozone-Hc 2.5% Crm) 0 gm TOP ASDIRECTED PRN PRN Reason: Itching Ibuprofen (Motrin Bulk Bottle) 600 mg PO Q6H PRN PRN Reason: Pain Last Admin: 01/15/18 18:20 Dose: 600 mg Ondansetron HCl (Zofran) 4 mg IV Q4H PRN PRN Reason: Nausea/Vomiting Senna/Docusate Sodium (Senna Plus) 1 tab PO DAILY MONO Sodium Chloride (Saline Flush) 10 ml FLUSH ASDIRECTED PRN PRN Reason: Keep Vein Open Witch Valery (Tucks) 1 pad TOP ASDIRECTED PRN PRN Reason: Hemorrhoids Last Admin: 01/15/18 16:29 Dose: 1 pad Discontinued Medications Ephedrine Sulfate (Ephedrine Sulfate) 5 mg IVPUSH ONETIME PRN PRN Reason: * Ephedrine Sulfate (Ephedrine Sulfate) 5 - 10 mg IV ASDIRECTED PRN PRN Reason: Systolic BP less than 100 Fentanyl (Sublimaze) 100 mcg IVPUSH Q1H PRN PRN Reason: Pain (moderate 4-6) Last Admin: 01/15/18 12:02 Dose: 100 mcg Penicillin G Potassium 5 (millunits/ Sodium Chloride) 50 mls @ 100 mls/hr IV ONETIME ONE Stop: 01/15/18 08:59 Last Admin: 01/15/18 08:11 Dose: 100 mls/hr Penicillin G Potassium 2.5 (millunits/ Sodium Chloride) 50 mls @ 100 mls/hr IV Q4H MONO Last Admin: 01/15/18 12:07 Dose: 100 mls/hr Oxytocin/Sodium Chloride (Pitocin In Ns 20 Units/1,000 Ml) 20 unit in 1,000 mls @ 6 mls/hr IV TITRATE MONO; Protocol Last Titration: 01/15/18 14:32 Dose: Infused Lactated Ringer's (Ringers, Lactated) 1,000 mls @ 999 mls/hr IV ONETIME ONE Stop: 01/15/18 08:53 Last Admin: 01/15/18 11:33 Dose: 999 mls/hr Ropivacaine (Naropin 0.2%) 100 mls @ 0 mls/hr EPIDUR ASDIRECTED [facility], 1928–1983; Protocol Lidocaine HCl (Xylocaine 1%) Confirm Administered Dose 100 ml .ROUTE .STK-MED ONE Stop: 01/15/18 13:30 Last Admin: 01/15/18 18:21 Dose: Not Given Naloxone HCl (Narcan) 0.1 mg IVPUSH Q5M PRN PRN Reason: IF RESP RATE LESS THAN 6 Pneumococcal Polyvalent Vaccine (Pneumovax 23) 0.5 ml IM .ONCE ONE Stop: 01/16/18 09:01 - Infant Interaction Disposition, : in Room with Family Infant Interaction: Holding Infant Infant Feeding: Breastfed ; Nursed Well, Continues to Breastfeed, Encouraged to Breastfeed Support Person: Significant Other - Recovery Exam Fundal Tone: Firms with Massage Fundal Level: 2 Fingerbreadths Below Umbilicus Fundal Placement: Midline Lochia Amount: Small Lochia Color: Brownish Perineum Description: Intact, Minimal Bruising/Swelling Episiotomy/Laceration: None Bladder Status: Voiding Urinary Elimination: Voided - Exam General: Alert, Oriented HEENT: Pupils Equal Neck: Supple Lungs: Clear to Auscultation, Normal Respiratory Effort Cardiovascular: Regular Rate, Regular Rhythm GI/Abdominal Exam: Normal Bowel Sounds, Soft, Non-Tender, No Organomegaly, No Distention, No Abnormal Bruit, No Mass, Pelvis Stable, Hernia (large umbilical) Extremities: Normal Inspection, Normal Range of Motion, Non-Tender, No Pedal Edema, Normal Capillary Refill Skin: Warm, Dry, Intact Wound/Incisions: Healing Well Neurological: No New Focal Deficit Psy/Mental Status: Alert, Normal Affect, Normal Mood - Problem List & Annotations (1) SNOMED Code(s): 86155335 Code(s): Z34.90 - ENCNTR FOR SUPRVSN OF NORMAL , UNSP, UNSP TRIMESTER Status: Acute Current Visit: Yes Qualifiers: Weeks of gestation: 40 weeks Qualified Code(s): Z3A.40 - 40 weeks gestation of (2) Positive GBS test SNOMED Code(s): 2127600175023, 6645597517725 Code(s): B95.1 - STREPTOCOCCUS, GROUP B, CAUSING DISEASES CLASSD [id number] Status: Acute Current Visit: Yes (3) Encounter for induction of labor SNOMED Code(s): 425961027 Code(s): Z34.90 - ENCNTR FOR SUPRVSN OF NORMAL , UNSP, UNSP TRIMESTER Status: Acute Current Visit: Yes (4) Advanced maternal age (AMA) in SNOMED Code(s): 595797588 Code(s): PJC4213 - Status: Acute Current Visit: Yes (5) Normal vaginal delivery SNOMED Code(s): 57407085 Code(s): O80 - ENCOUNTER FOR FULL-TERM UNCOMPLICATED DELIVERY Status: Acute Current Visit: Yes (6) Elevated white blood cell count SNOMED Code(s): 942015402, 774585997 Code(s): D72.829 - ELEVATED WHITE BLOOD CELL COUNT, UNSPECIFIED Status: Acute Current Visit: Yes (7) Meconium staining SNOMED Code(s): 311185353, 367603982 Code(s): P96.83 - MECONIUM STAINING Status: Acute Current Visit: Yes (8) Umbilical hernia SNOMED Code(s): 634227042 Code(s): K42.9 - UMBILICAL HERNIA WITHOUT OBSTRUCTION OR GANGRENE Status: Acute Current Visit: Yes Qualifiers: Obstruction and gangrene presence: without obstruction or gangrene Qualified Code(s): K42.9 - Umbilical hernia without obstruction or gangrene - Problem List Review Problem List Initiated/Reviewed/Updated: Yes - My Orders Last 24 Hours: My Active Orders 01/17/18 09:00 Docusate Sodium/Sennosides [Senna Plus] 1 tab PO DAILY - Assessment Assessment:: 01/15/2018 37 yo G7 now P4 in at 40 1/7 gestational weeks delivered viable female without complications at 1315 on 01/15/2018 Labs-GBS positive, A positive, Hep B neg, Hep C neg, HIV neg, RPR nonreactive, Rubella Immune --------- 01/16/2018 day one Fundus firm and bleeding decreased Large umbilical hernia Voiding and passing gas GBS positive well Social problem 01/17/2018 day two Fundus firm and bleeding decreased Large umbilical hernia Voiding and passing gas-had small stool GBS positive well Social problem - Plan Plan:: 01/15/2018 37 yo here at 40 1/7 gestational weeks for induction of labor related to postdates, unstable lie of fetus. SVE-3-/-2 bulgy BOW FHTs category one No contractions Plan- Monitor labor Monitor FHTs Start pitocin per protocol May eat regular breakfast GBS positive-PCN GK per protocol May have epidural for pain Plan and anticipate a vaginal delivery 01/15/2018 Routine Cares Support and encourage 48 hr stay for GBS positive CBC in am 01/16/2018 Continue routine cares Support and encourage 48 hr stay for GBS positive Discharge home today
[2018-01-17 08:42] VITALS: BP 141/79
[2018-01-17] MEDS: Benzocaine 20% Top Spray 56 GM Bottle TOP PRN (10:56)
== END 2018-01-17 13:15 | disposition home or self-care (01) | DRG 775 ==
LOC: JP.OB 06:34 → OBSVTOIN 13:15 → JP.MS 16:48
PROVIDERS: ADMIT Advanced Practice Midwife; ATTEND Advanced Practice Midwife
PROC: 10E0XZZ Delivery of Products of Conception, External Approach (ICD-10-PCS; principal; 2018-01-15)
PROC: 3E033VJ Introduction of Other Hormone into Peripheral Vein, Percutaneous Approach (ICD-10-PCS; 2018-01-15)
PROC: 00HU33Z Insertion of Infusion Device into Spinal Canal, Percutaneous Approach (ICD-10-PCS; 2018-01-15)
DX: O48.0 Post-term pregnancy (principal); Z3A.40 40 weeks gestation of pregnancy; O99.334 Smoking (tobacco) complicating childbirth; O99.824 Streptococcus B carrier state complicating childbirth; O99.52 Diseases of the respiratory system complicating childbirth; O32.0XX0 Maternal care for unstable lie, not applicable or unspecified; O77.0 Labor and delivery complicated by meconium in amniotic fluid; O70.0 First degree perineal laceration during delivery; Z37.0 Single live birth; J45.909 Unspecified asthma, uncomplicated; H54.7 Unspecified visual loss; Z85.41 Personal history of malignant neoplasm of cervix uteri; D72.829 Elevated white blood cell count, unspecified; Z23 Encounter for immunization; K42.9 Umbilical hernia without obstruction or gangrene
CPT/HCPCS: 36415; 59409; 76815; 76815-26; 80305-QW; 81001; 85025; 88307; 90732; A9270-GY; G0009; J2540; J2590; J3010; J7050; J7120

== ENCOUNTER 2023-12-06 17:51 | Emergency (ER) | payer MEDICAID ==
[2023-12-06 18:07] VITALS: BP 124/92; PULSE 110
[2023-12-06 18:41] LABS: BASOPHILS ABSOLUTE AUTO 0.05 K/uL (0.00-0.10); BASOPHILS PERCENT AUTO 0.5 % (0.1-1.3); EOSINOPHILS PERCENT AUTO 0.1 % (0.0-5.4); HEMATOCRIT 40.4 % (34.3-46.0); HEMOGLOBIN 14.2 g/dL (11.2-15.5); IMMATURE GRAN ABSOLUTE AUTO 0.04 K/uL (0.00-0.23); IMMATURE GRAN PERCENT AUTO 0.4 % (0.0-0.7); LYMPHOCYTES PERCENT AUTO 27.2 % (11.4-47.7); MEAN CORPUSCULAR HEMOGLOBIN 31.3 pg (31.6-35.5); MEAN CORPUSCULAR HGB CONC 35.1 g/dL (31.6-35.5); MONOCYTES ABSOLUTE AUTO 1.12 K/uL (0.20-0.90); MONOCYTES PERCENT AUTO 11.3 % (3.3-12.6); NEUTROPHILS ABSOLUTE AUTO 6.02 K/uL (1.0-7.6); NEUTROPHILS PERCENT AUTO 60.5 % (40.0-78.1); PLATELET COUNT,PLT 271 K/uL (130-375); RED BLOOD CELL COUNT 4.54 M/uL (3.77-5.24); WHITE BLOOD CELL COUNT,WBC 9.9 K/uL (3.2-11.0)
[2023-12-06 18:42] LABS: EOSINOPHILS ABSOLUTE AUTO 0.01 K/uL (0.00-0.40)
[2023-12-06] MEDS: SUMAtriptan 6 MG/0.5 ML SDV SUBCUT ONE (18:55)
[2023-12-06 19:03] LABS: A/G RATIO 0.8 (1.2-2.2); ALANINE AMINOTRANSFERASE,ALT 28 U/L (12-78); ALBUMIN 3.2 g/dL (3.4-5.0); ALKALINE PHOSPHATASE 63 U/L (46-116); ANION GAP 12.9 mmol/L (5.0-14.0); ASPARTATE AMNIOTRANSFERASE,AST 19 U/L (15-37); BILIRUBIN TOTAL 0.6 mg/dL (0.2-1.0); BLOOD UREA NITROGEN,BUN 6 mg/dL (7-18); C-REACTIVE PROTEIN 6.29 mg/dL (<0.50); CALCIUM 8.4 mg/dL (8.5-10.1); CARBON DIOXIDE,CO2 26 mmol/L (21-32); CHLORIDE,CL 99 mmol/L (100-108); CREATININE 0.7 mg/dL (0.6-1.0); EST CRCL DRUG DOSING (CG) 101.81 mL/min; ESTIMATED GFR 111 mL/min (>60); GLUCOSE RANDOM 89 mg/dL (74-106); POTASSIUM,K 3.9 mmol/L (3.6-5.2); PROTEIN TOTAL,TP 7.1 g/dL (6.4-8.2); SODIUM,NA 134 mmol/L (140-148)
[2023-12-06 19:19] LABS: LYME AB IgG Negative (Negative); LYME AB IgM Negative (Negative)
[2023-12-06] MEDS: Ketorolac 30 MG/ML SDV IVPUSH ONE (20:53)
[2023-12-06] MEDS: Prochlorperazine 10 MG/2 ML SDV IVPUSH ONE (20:53)
[2023-12-06] MEDS: diphenhydrAMINE 50 MG/ML SDV IVPUSH ONE (20:53)
[2023-12-06] MEDS: Sodium Chloride 0.9% 1,000 ML IV SCH (20:54)
== END 2023-12-06 22:05 | disposition home or self-care (01) ==
LOC: JP.ED 17:51
DX: G43.909 Migraine, unspecified, not intractable, without status migrainosus (principal); K04.7 Periapical abscess without sinus; J45.909 Unspecified asthma, uncomplicated; Z79.899 Other long term (current) drug therapy
CPT/HCPCS: 70450; 70486; 80053; 85025; 86140; 86618; 87468; 87469; 87484; 87798; 96372; 96374; 96375; 99284; J0780; J1200; J1885; J3030; J7030

== ENCOUNTER 2023-12-12 08:33 | Emergency (ER) | payer MEDICAID ==
[2023-12-12 09:12] VITALS: BP 121/81; PULSE 83
== END 2023-12-12 09:47 | disposition home or self-care (01) ==
LOC: JP.ED 08:33
DX: G51.0 Bell's palsy (principal); J45.909 Unspecified asthma, uncomplicated; K21.9 Gastro-esophageal reflux disease without esophagitis; F17.210 Nicotine dependence, cigarettes, uncomplicated; Z79.51 Long term (current) use of inhaled steroids; Z79.899 Other long term (current) drug therapy
CPT/HCPCS: 99283